=== PATIENT | male | born 1995 | race Caucasian/White ===

== ENCOUNTER 2021-05-20 14:29 | Emergency (ER) | payer OTHER, SELFPAY ==
[2021-05-20 14:40] VITALS: BP 116/86; PULSE 89; RESP 16; TEMP 37.1; O2SAT 99
--- NOTE | 2021-05-20 15:24 | ED.DENTAL ---
HPI - Dental/Oral General Chief complaint: Dental/Oral Stated complaint: tooth pain Time Seen by Provider: 05/20/21 15:09 Source: patient and RN notes reviewed Mode of arrival: ambulatory Limitations: no limitations History of Present Illness HPI Narrative: Patient presents today complaining of painful upper wisdom teeth times several weeks. 3 days ago, patient went to the dentist and had his teeth cleaned for the first time in several years. He was given a prescription for 800 mg ibuprofen which he has been taking in excess. States it is not helping with his pain. He has an appointment on July 16 to have his wisdom teeth removed. Per the pharmacy database, patient was also given a prescription for clindamycin at that time, but patient states he did not know about this prescription. Patient is here today because he was wanting something more for pain. MD Complaint: tooth pain Related Data Home Medications Medication Instructions Recorded Confirmed ibuprofen 05/20/21 Allergies Allergy/AdvReac Type Severity Reaction Status Date / Time amoxicillin Allergy Mild Verified 04/15/18 13:57 Review of Systems Review of Systems: CONSTITUTIONAL: Denies body aches, fever, chills, or sweats. EYES: Denies visual changes, redness, or discharge. ENT: Denies rhinorrhea, congestion, sore throat, or otalgia.+ Tooth pain CARDIOVASCULAR: Denies chest pain, palpitations, or edema. RESPIRATORY: Denies cough or dyspnea. GASTROINTESTINAL: Denies abdominal pain, nausea, vomiting, or diarrhea. GENITOURINARY: Denies dysuria or hematuria. SKIN: Denies rash, itching, or wounds. MUSCULOSKELETAL: Denies back pain, joint pain, or myalgia. NEUROLOGIC: Denies headache, numbness, tingling, or weakness. PSYCH: Denies depression or anxiety. PMFSH Comments At time of signature, I have reviewed and agree with nursing past medical, surgical, social and family history unless otherwise noted. Please see nursing chart for further information. There is no relevant family history pertinent to the presenting complaint Exam Narrative: GENERAL: Well-appearing, well-nourished, and in no acute distress. HEAD: Normocephalic, atraumatic. EYES: EOMI. No redness or drainage. Conjunctivae normal. ENT: Mucous membranes pink and moist. Throat normal. Uvula midline. Tooth #1 and 16 are black in color and broken off at the gumline. NECK: Normal AROM. Supple. No lymphadenopathy. CHEST: No respiratory distress. EXTREMITIES: Normal range of motion. No edema. SKIN: Warm, dry, no rash. Capillary refill normal. Normal skin turgor. NEURO: No focal deficits. Alert and oriented x3. Gait steady. PSYCH: Normal affect. No signs of depression or anxiety. Course Course Emergency Course: Discussed with patient that he should have a prescription for antibiotics waiting for him at the pharmacy, and this may be the source of his pain. He should start taking the antibiotics as prescribed, take a break from the ibuprofen, and start taking some Tylenol for pain. Patient agrees with plan. Vital Signs Vital signs: Vital Signs Temperature 98.7 F 05/20/21 14:40 Pulse Rate 89 05/20/21 14:40 Respiratory Rate 16 05/20/21 14:40 Blood Pressure 116/86 05/20/21 14:40 Pulse Oximetry 99 05/20/21 14:40 Temperature 98.7 F 05/20/21 14:40 Pulse Rate 89 05/20/21 14:40 Respiratory Rate 16 05/20/21 14:40 Blood Pressure 116/86 05/20/21 14:40 Pulse Oximetry 99 05/20/21 14:40 Reviewed. Pt has been instructed to follow up with his PCP regarding his elevated blood pressure today. MDM - Dental/Oral Differential Diagnosis Differential diagnosis: Likely gingival abscess, dental caries, toothache and dental abscess Critical Care Time Critical Care Time Critical Care Time: No Discharge Plan Discharge Clinical Impression: Toothache Patient Disposition: Home, Self-Care Condition: Stable Instructions: Toothache (ED) Additional Instructions
== END 2021-05-20 15:38 | disposition home or self-care (01) ==
PROVIDERS: Emergency Provider Nurse Practitioner
DX: K08.89 Other specified disorders of teeth and supporting structures (principal)
CPT/HCPCS: 99211; G0463

== ENCOUNTER 2022-06-25 17:48 | Emergency (ER) | payer OTHER, SELFPAY | END 2022-06-25 20:07 | disposition left against medical advice (07) | LOC: EXPCOLL 17:52 | PROVIDERS: Emergency Provider Nurse Practitioner Family; PCP Family Medicine Adolescent Medicine | DX: Z53.21 Procedure and treatment not carried out due to patient leaving prior to being seen by health care provider (principal) | CPT/HCPCS: 99199 ==

== ENCOUNTER 2022-06-26 17:09 | Emergency (ER) | payer OTHER, SELFPAY | END 2022-06-26 18:56 | disposition left against medical advice (07) | PROVIDERS: Emergency Provider Internal Medicine Hematology & Oncology; PCP Family Medicine Adolescent Medicine | DX: Z53.21 Procedure and treatment not carried out due to patient leaving prior to being seen by health care provider (principal) | CPT/HCPCS: 99199 ==